=== PATIENT | female | born 1965 | race Caucasian/White ===

== ENCOUNTER 2016-10-09 21:45 | Emergency (ER) | payer OTHER ==
[~2016-10-09] VITALS: Ht 157.5 cm; Wt 87.0 kg
[2016-10-10] MEDS ORDERED: ONDANSETRON 4MG ODT PO STA (00:23)
[2016-10-10] MEDS ORDERED: POLYETHYLENE GLYCOL 3350 (17GM) 1 DOSE PACK PO ONE (00:30)
[2016-10-10 00:49] LABS: CHLORIDE 100 mEq/L (98-107); INDEX HEMOLYSI 1 (1-3); INDEX ICTERIC 1 (1-4); INDEX LIPEMIC 1 (1-3)
[2016-10-10 00:58] LABS: ANION GAP 14; CARBON DIOXIDE 26 mEq/L (21-32); UREA NITROGEN BLOOD 11 mg/dL (7-21)
[2016-10-10 00:59] LABS: ALANINE AMINOTRANSFERASE 35 IU/L (13-61); ALBUMIN 4.1 g/dL (3.4-5.0); CALCIUM 9.5 mg/dL (8.5-10.1); LIPASE 113 IU/L (73-393); eGFR > 60 mL/min (>60)
[2016-10-10 01:00] LABS: BASOPHILS % 0.3 % (0.0-2.0); EOSINOPHILS % 0.4 % (0.0-5.0); HEMATOCRIT. 36.4 % (36.0-48.0); HEMOGLOBIN. 12.6 g/dL (12.0-16.0); LYMPHOCYTES % 18.3 % (20.0-50.0); MEAN CORPUSCULAR HEMOGLOBIN 29.7 pg (28.0-32.0); MEAN CORPUSCULAR HGB CONC 34.7 g/dL (31.0-37.0); MEAN CORPUSCULAR VOLUME 85.8 fL (81.0-99.0); MEAN PLATELET VOLUME 9.1 fl (7.4-10.4); MONOCYTES % 6.8 % (2.0-8.0); NEUTROPHILS % 74.2 % (40.0-76.0); PLATELET 272 x1000/uL (130-400); RED BLOOD CELL COUNT 4.24 mill/uL (4.2-5.4); RED CELL DISTRIBUTION WIDTH 12.6 % (11.6-14.6); WHITE BLOOD COUNT 10.4 x1000/uL (4.5-11.0)
[2016-10-10 01:21] LABS: CLARITY URINE CLEAR (CLEAR); COLOR URINE YELLOW (YELLOW); GLUCOSE URINE NEGATIVE (NEGATIVE); KETONES URINE NEGATIVE (NEGATIVE); LEUKOCYTE ESTERASE URINE NEGATIVE (NEGATIVE); NITRITE URINE NEGATIVE (NEGATIVE); OCCULT BLOOD URINE NEGATIVE (NEGATIVE); PROTEIN URINE NEGATIVE (NEGATIVE); SPECIFIC GRAVITY URINE 1.004 (1.005-1.030); UROBILINOGEN URINE 0.2 E.U./dL (0.2-1.0)
[2016-10-10 02:35] VITALS: BP 145/72
== END 2016-10-10 02:38 | disposition home or self-care (01) ==
LOC: ER 10-10 00:05
DX: K59.00 Constipation, unspecified (principal); R11.0 Nausea; I10 Essential (primary) hypertension; Z98.890 Other specified postprocedural states
CPT/HCPCS: 36415; 80053; 81003; 83690; 85025; 99284; Q0162; Z7610